=== PATIENT | female | born 1960 | race Caucasian/White ===

== ENCOUNTER 2018-12-06 11:15 | Emergency (ER) | payer OTHER ==
[~2018-12-06] VITALS: Ht 177.8 cm; Wt 97.1 kg
--- NOTE | 2018-12-06 11:35 | NUR ---
ED Nurse Note: Patient walked into ED c/o twisted ankle on the right side today 30 minutes prior to arrival. patient reports she twisted her ankle due to uneven road.
--- NOTE | 2018-12-06 11:43 | Emergency Room Report ---
History of Present Illness General Chief Complaint: Lower Extremity Injury Source: Patient Present Illness HPI Disclaimer: Please note that this report is being documented using [employer] technology. This can lead to erroneous entry secondary to incorrect interpretation by the dictating instrument. HPI: 58-year-old female with a history of hypertension presents for evaluation of right ankle pain after a fall. [place] she excellently stepped off a rolling her ankle in an inversion motion. Noted immediate pain and swelling. Was unable to bear weight. Notes tenderness over the lateral malleolus. Denies pain over the foot. PMH: Retention PSH: Surgical pinning in the right foot for Lisfranc fracture Allergies: Denies Social Hx: Denies drug, alcohol or tobacco use Allergies: Coded Allergies: No Known Allergies (Unverified , 12/06/18) Nursing Documentation-PMH Past Medical History: No History, Except For Hx Hypertension: Yes Review of Systems All Other Systems: negative except mentioned in HPI Physical Exam Vital Signs Date Time Temp Pulse Resp B/P (MAP) Pulse Ox O2 Delivery O2 Flow Rate FiO2 12/06/18 11:26 97.9 79 18 125/76 (92) 97 Room Air General: Awake and alert, no acute distress HEENT: NC/AT. EOMI. Resp: Normal work of breathing. Skin: Intact. No abrasions, laceration or rash over the exposed skin MSK: Normal tone and bulk. Moving all extremities. There is tenderness over the anterior and posterior aspect of the right lateral malleolus. No tenderness over the medial malleolus. No midfoot tenderness. Patient is able to dorsiflex and plantarflex. Pain with eversion and inversion. 2+ PT and DP pulses bilaterally. Sensation is intact over the dermatomes of the lower extremities. No tenderness, limitation range of motion in the knees or hips. The pelvis is stable. Neuro: Awake and alert. Mentating appropriately. Station is intact over the dermatomes of the lower extremities bilaterally. Back/Spine: No midline tenderness in the cervical, thoracic or lumbosacral spine. Medical Decision Making Diagnostic Impression: Primary Impression: Fracture of distal fibula ER Course 58-year-old female presents for evaluation of right ankle pain after a fall. Concern for fracture versus sprain at this time. There is no head injury, other injury and the patient has tenderness over the posterior aspect of the right lateral malleolus. Will obtain an x-ray to rule out fracture. Motrin for pain. Other X-Ray Diagnostic Results Other X-Ray Diagnostic Results : X-Ray ordered: Right ankle # of Views/Limited Vs Complete: 3 View Indication: Swelling EP Interpretation: Yes - Nondisplaced fracture of the distal right fibula, hardware from previous surgery appears in place Electronically Signed by: Electronically signed by Dr. Weston Mueller Reevaluation Time: 12:44 Last Vital Signs Date Time Temp Pulse Resp B/P (MAP) Pulse Ox O2 Delivery O2 Flow Rate FiO2 12/06/18 11:26 97.9 79 18 125/76 (92) 97 Room Air Reevaluation Impression X-ray shows nondisplaced fracture of the right distal fibula. Patient was placed in a walking cast given crutches and instructions to follow-up with orthopedic surgery when she returns home to [place] in 5 days. We discussed the importance of keeping the leg mobile to prevent DVTs, keeping it elevated, proper NSAID use and care. Will start on a full dose aspirin daily for DVT prophylaxis. We also discussed reasons to return to the emergency department with patient. She will follow-up with orthopedic surgeon when she returns home. Discussed treatment plan and diagnosis with family who was also present in the room. Disposition: HOME, SELF-CARE Condition: Stable Scripts Aspirin* (ASPIRIN*) 325 Mg Tablet 325 MG ORAL DAILY, #30 TAB Prov: Weston Mueller MD 12/06/18 Weston Mueller MD Dec 06, 2018 11:43
[2018-12-06 12:04] VITALS: BP 125/76
--- NOTE | 2018-12-06 12:13 | Diagnostic Imaging Report ---
EXAM: XR Right Ankle Complete, 3 or More Views CLINICAL HISTORY: INJ TECHNIQUE: Frontal, lateral and oblique views of the right ankle. COMPARISON: No relevant prior studies available. FINDINGS: Bones/joints: Suspect subtle nondisplaced fracture of the distal fibula. Fixation hardware in the midfoot Soft tissues: Soft tissue swelling. IMPRESSION: Suspect subtle nondisplaced fracture of the distal fibula.
[2018-12-06] MEDS ORDERED: ASPIRIN325 MG ORAL (12:55)
[2018-12-06 13:02] VITALS: BP 125/76
--- NOTE | 2018-12-06 13:02 | NUR ---
ER DISCHARGE NOTE: Patient is cleared to be discharged per ERMD DR DC, pt is aox4, on room air, with stable vital signs. pt was given dc and prescription instructions, pt was able to verbalize understanding, pt id band removed without complications. pt is able to ambulate with steady gait. pt took all belongings.
== END 2018-12-06 13:02 | disposition home or self-care (01) ==
LOC: EMR 12:09
DX: S82.401A Unspecified fracture of shaft of right fibula, initial encounter for closed fracture (principal); X58.XXXA Exposure to other specified factors, initial encounter; Y92.9 Unspecified place or not applicable; I10 Essential (primary) hypertension
CPT/HCPCS: 99283